=== PATIENT | male | born 1990 | race African-American/Black ===

== ENCOUNTER 2021-09-13 07:27 | Emergency (ER) | payer SELFPAY ==
[~2021-09-13] VITALS: Ht 180.3 cm; Wt 73.0 kg
[2021-09-13 09:04] LABS: CHLORIDE 102 mEq/L (98-107)
[2021-09-13 09:09] LABS: EOSINOPHILS % 0.1 % (0.0-5.0); LYMPHOCYTES % 8.3 % (20.0-50.0); MEAN CORPUSCULAR HEMOGLOBIN 30.7 pg (28.0-32.0); MEAN PLATELET VOLUME 9.3 fl (7.4-10.4); MONOCYTES % 10.9 % (2.0-8.0); NEUTROPHILS % 79.7 % (40.0-76.0); PLATELET 265 x1000/uL (130-400); RED BLOOD CELL COUNT 4.56 mill/uL (4.7-6.1); RED CELL DISTRIBUTION WIDTH 12.7 % (11.6-14.6)
[2021-09-13 09:12] LABS: ETHANOL BLOOD < 10 mg/dL
[2021-09-13] MEDS ORDERED: POTASSIUM CHLORIDE INJ 40 MEQ in DEXT 5% WATER 500 ML IV ONE (11:45)
[2021-09-13] MEDS ORDERED: OLANZAPINE 10 MG/VIAL IM ONE (11:45)
[2021-09-13] MEDS ORDERED: POTA-205 PO (12:25)
[2021-09-13] MEDS ORDERED: POTASSIUM CHLORIDE 20MEQ TABLET SR PO ONE (12:30)
[2021-09-13] MEDS ORDERED: KCL 20MEQ/100ML PREMIX 100 ML IV SCH (13:00)
[2021-09-13] MEDS ORDERED: OLANZAPINE 10 MG/VIAL IM SCH (13:45)
[2021-09-13 14:00] VITALS: BP 124/79
[2021-09-13] MEDS ORDERED: POTASSIUM CHLORIDE 20MEQ TABLET SR PO SCH (14:00)
== END 2021-09-13 15:25 | disposition home or self-care (01) ==
LOC: ER 07:27
DX: F11.188 Opioid abuse with other opioid-induced disorder (principal); F15.188 Other stimulant abuse with other stimulant-induced disorder; E87.6 Hypokalemia; Z71.51 Drug abuse counseling and surveillance of drug abuser; E16.2 Hypoglycemia, unspecified; D72.829 Elevated white blood cell count, unspecified
CPT/HCPCS: 36415; 80053; 80320; 82962; 85025; 99284; J3480; J3490; J7060; G0480